=== PATIENT | female | born 1970 | race Caucasian/White ===

== ENCOUNTER 2024-07-01 12:43 | Outpatient (REF) | payer MEDICAID, SELFPAY ==
[2024-07-01 12:59] LABS: ALT 47 U/L (14-59); AST 22 U/L (15-37); Alkaline Phosphatase 93 U/L (46-116); Anion Gap 5.4 mmol/L (3-11); BUN 17 mg/dL (7-18); CO2 29.6 mmol/L (21.0-32.0); CREATININE 0.8 mg/dL (0.55-1.02); Calcium 9.1 mg/dL (8.5-10.1); Chloride 110 mmol/L (98-107); Estimated GFR 88.05 (mL/min/1.73m2); Glucose 94 mg/dL (74-106); Potassium 4.1 mmol/L (3.5-5.1); Sodium 145 mmol/L (136-145); Total Protein 6.7 g/dL (6.4-8.2)
[2024-07-01 13:10] LABS: Albumin 3.4 g/dL (3.4-5.0); Bilirubin, Total 0.26 mg/dL (0.2-1.0)
== END 2024-07-01 12:44 | disposition home or self-care (01) ==
LOC: LBN 12:43
PROVIDERS: PCP Family Medicine; Visit Provider Internal Medicine Medical Oncology
DX: C50.212 Malignant neoplasm of upper-inner quadrant of left female breast (principal); Z17.1 Estrogen receptor negative status [ER-]
CPT/HCPCS: 80053

== ENCOUNTER 2024-07-02 00:05 | Outpatient (RCR) | payer MEDICAID, SELFPAY ==
[2024-07-02 15:15] VITALS: BP 105/71; PULSE 95; RESP 16; TEMP 37; O2SAT 96
== END 2024-07-08 23:59 | disposition home or self-care (01) ==
LOC: INF 00:05
PROVIDERS: PCP Family Medicine; Visit Provider Nurse Practitioner Acute Care
DX: C50.212 Malignant neoplasm of upper-inner quadrant of left female breast (principal); Z17.1 Estrogen receptor negative status [ER-]
CPT/HCPCS: 96372; J2506

== ENCOUNTER 2024-08-05 03:22 | Outpatient (RCR) | payer MEDICAID, SELFPAY ==
[2024-08-05 09:25] LABS: Abs Immature Grans 0.02 10^3/uL (0.0-0.06); Absolute Basophil Count 0.03 10^3/uL (0.0-0.2); Absolute Eosinophil Count 0.48 10^3/uL (0.0-0.7); Absolute Lymphocyte Count 1.66 10^3/uL (1.2-3.4); Absolute Monocyte Count 0.59 10^3/uL (0.1-0.8); Absolute Neutrophil Count 3.85 10^3/uL (1.2-6.7); Basophils % 0.5 %; Eosinophils % 7.2 %; HCT 40.1 % (36.0-46.0); HGB 13.2 g/dL (11.2-15.7); Immature Grans % 0.3 %; MCH 29.9 pg (27.0-33.0); MCHC 32.9 % (32.0-36.0); MCV 91 fL (80-95); MPV 9.4 fL (8.0-11.0); Monocytes % 8.9 %; Neutrophils % 58.1 %; Platelet Count 204 10^3/uL (130-400); RBC 4.41 10^6/uL (3.93-5.22); RDW 13.9 % (11.7-14.6); RDW-SD 46.7 fL; WBC 6.63 10^3/uL (4.4-10.8)
[2024-08-05] MEDS: Normal Saline Flush 10 ML SYR IVP (09:33)
[2024-08-05 09:39] LABS: ALT 41 U/L (14-59); AST 17 U/L (15-37); Albumin 3.4 g/dL (3.4-5.0); Alkaline Phosphatase 97 U/L (46-116); Anion Gap 7.9 mmol/L (3-11); BUN 16 mg/dL (7-18); Bilirubin, Total 0.4 mg/dL (0.2-1.0); CO2 28.1 mmol/L (21.0-32.0); CREATININE 0.8 mg/dL (0.55-1.02); Calcium 9.1 mg/dL (8.5-10.1); Chloride 108 mmol/L (98-107); Estimated GFR 88.05 (mL/min/1.73m2); Glucose 136 mg/dL (74-106); Potassium 3.8 mmol/L (3.5-5.1); Sodium 144 mmol/L (136-145); Total Protein 6.8 g/dL (6.4-8.2)
[2024-08-06 14:50] VITALS: BP 134/87; PULSE 77; RESP 16; TEMP 37.4; O2SAT 97
== END 2024-08-08 23:59 | disposition home or self-care (01) ==
LOC: INF 03:22
PROVIDERS: Internal Medicine Medical Oncology; PCP Family Medicine; Visit Provider Nurse Practitioner Acute Care
DX: C50.212 Malignant neoplasm of upper-inner quadrant of left female breast (principal); Z17.1 Estrogen receptor negative status [ER-]
CPT/HCPCS: 36591; 80053; 96372; 85025; J2506

== ENCOUNTER 2024-08-27 00:51 | Outpatient (RCR) | payer MEDICAID, SELFPAY ==
[2024-08-26 09:01] LABS: Abs Immature Grans 0.02 10^3/uL (0.0-0.06); Absolute Basophil Count 0.05 10^3/uL (0.0-0.2); Absolute Eosinophil Count 0.04 10^3/uL (0.0-0.7); Absolute Lymphocyte Count 1.41 10^3/uL (1.2-3.4); Absolute Monocyte Count 0.71 10^3/uL (0.1-0.8); Absolute Neutrophil Count 3.97 10^3/uL (1.2-6.7); Basophils % 0.8 %; Eosinophils % 0.6 %; HCT 41.4 % (36.0-46.0); HGB 13.4 g/dL (11.2-15.7); Immature Grans % 0.3 %; Lymphocytes % 22.7 %; MCH 29.8 pg (27.0-33.0); MCHC 32.4 % (32.0-36.0); MCV 92 fL (80-95); Monocytes % 11.5 %; Neutrophils % 64.1 %; Platelet Count 281 10^3/uL (130-400); RDW 14.4 % (11.7-14.6); RDW-SD 47.8 fL
[2024-08-26 09:20] LABS: ALT 79 U/L (14-59); AST 27 U/L (15-37); Albumin 3.5 g/dL (3.4-5.0); Alkaline Phosphatase 96 U/L (46-116); BUN 17 mg/dL (7-18); Bilirubin, Total 0.3 mg/dL (0.2-1.0); CREATININE 0.7 mg/dL (0.55-1.02); Calcium 9.3 mg/dL (8.5-10.1); Chloride 107 mmol/L (98-107); Estimated GFR 103.35 (mL/min/1.73m2); Glucose 115 mg/dL (74-106); Potassium 4.1 mmol/L (3.5-5.1); Sodium 142 mmol/L (136-145)
[2024-08-26] MEDS: Normal Saline Flush 10 ML SYR IVP (09:40)
== END 2024-09-07 23:59 | disposition home or self-care (01) ==
LOC: INF 00:51
PROVIDERS: Internal Medicine Medical Oncology; PCP Family Medicine; Visit Provider Family Medicine
DX: C50.212 Malignant neoplasm of upper-inner quadrant of left female breast (principal); Z17.1 Estrogen receptor negative status [ER-]
CPT/HCPCS: 36415; 36591; 80053; 96372; 85025; J2506

== ENCOUNTER 2024-09-24 00:07 | Outpatient (RCR) | payer MEDICAID, SELFPAY ==
[2024-09-16 08:58] LABS: Abs Immature Grans 0.01 10^3/uL (0.0-0.06); Absolute Basophil Count 0.04 10^3/uL (0.0-0.2); Absolute Eosinophil Count 0.03 10^3/uL (0.0-0.7); Absolute Lymphocyte Count 1.15 10^3/uL (1.2-3.4); Absolute Monocyte Count 0.52 10^3/uL (0.1-0.8); Absolute Neutrophil Count 3.73 10^3/uL (1.2-6.7); Basophils % 0.7 %; Eosinophils % 0.5 %; HCT 39.2 % (36.0-46.0); HGB 12.6 g/dL (11.2-15.7); Immature Grans % 0.2 %; MCH 29.4 pg (27.0-33.0); MCHC 32.1 % (32.0-36.0); MCV 91 fL (80-95); Monocytes % 9.5 %; Neutrophils % 68.1 %; Platelet Count 220 10^3/uL (130-400); RBC 4.29 10^6/uL (3.93-5.22); RDW 14.5 % (11.7-14.6); RDW-SD 48.1 fL; WBC 5.48 10^3/uL (4.4-10.8)
[2024-09-16] MEDS: Normal Saline Flush 10 ML SYR IVP (08:58)
[2024-09-16 09:16] LABS: ALT 45 U/L (14-59); AST 26 U/L (15-37); Albumin 3.3 g/dL (3.4-5.0); Alkaline Phosphatase 80 U/L (46-116); Anion Gap 9.2 mmol/L (3-11); BUN 15 mg/dL (7-18); Bilirubin, Total 0.3 mg/dL (0.2-1.0); CO2 25.8 mmol/L (21.0-32.0); CREATININE 0.8 mg/dL (0.55-1.02); Chloride 107 mmol/L (98-107); Estimated GFR 88.05 (mL/min/1.73m2); Glucose 131 mg/dL (74-106); Potassium 4.1 mmol/L (3.5-5.1); Sodium 142 mmol/L (136-145); Total Protein 6.5 g/dL (6.4-8.2)
[2024-09-23] MEDS: Normal Saline Flush 10 ML SYR IVP (09:59)
[2024-09-23 10:10] LABS: Abs Immature Grans 0.02 10^3/uL (0.0-0.06); Absolute Basophil Count 0.04 10^3/uL (0.0-0.2); Absolute Eosinophil Count 0.27 10^3/uL (0.0-0.7); Absolute Lymphocyte Count 1.27 10^3/uL (1.2-3.4); Absolute Monocyte Count 0.59 10^3/uL (0.1-0.8); Absolute Neutrophil Count 3.14 10^3/uL (1.2-6.7); Basophils % 0.8 %; Eosinophils % 5.1 %; HCT 39.3 % (36.0-46.0); HGB 12.7 g/dL (11.2-15.7); Immature Grans % 0.4 %; Lymphocytes % 23.8 %; MCH 29.4 pg (27.0-33.0); MCHC 32.3 % (32.0-36.0); MCV 91 fL (80-95); MPV 9.1 fL (8.0-11.0); Monocytes % 11.1 %; Neutrophils % 58.8 %; Platelet Count 245 10^3/uL (130-400); RBC 4.32 10^6/uL (3.93-5.22); RDW 14.6 % (11.7-14.6); RDW-SD 49.1 fL; WBC 5.33 10^3/uL (4.4-10.8)
[2024-09-23 10:26] LABS: ALT 63 U/L (14-59); AST 35 U/L (15-37); Albumin 3.3 g/dL (3.4-5.0); Alkaline Phosphatase 80 U/L (46-116); Anion Gap 8.5 mmol/L (3-11); BUN 12 mg/dL (7-18); Bilirubin, Total 0.3 mg/dL (0.2-1.0); CO2 29.5 mmol/L (21.0-32.0); CREATININE 0.7 mg/dL (0.55-1.02); Chloride 107 mmol/L (98-107); Estimated GFR 103.35 (mL/min/1.73m2); Glucose 103 mg/dL (74-106); Potassium 3.7 mmol/L (3.5-5.1); Sodium 145 mmol/L (136-145); Total Protein 6.2 g/dL (6.4-8.2)
== END 2024-10-08 23:59 | disposition home or self-care (01) ==
LOC: INF 00:07
PROVIDERS: Internal Medicine Medical Oncology; PCP Family Medicine; Visit Provider Nurse Practitioner Acute Care
DX: C50.212 Malignant neoplasm of upper-inner quadrant of left female breast (principal); Z17.1 Estrogen receptor negative status [ER-]; Z45.2 Encounter for adjustment and management of vascular access device
CPT/HCPCS: 36591; 80053; 85025